=== PATIENT | female | born 1940 | race Caucasian/White ===

== ENCOUNTER 2019-05-10 13:21 | Inpatient (IN) | payer MEDICARE ==
[~2019-05-10] VITALS: Ht 165.1 cm; Wt 65.8 kg
[2019-05-10] MEDS ORDERED: FOLI100T (13:40)
--- NOTE | 2019-05-10 14:06 | NUR ---
PT IS IN ROOM #2B. DR PELAYO EVALUATED THE PT.
[2019-05-10 14:10] LABS: BASOPHILS % (AUTO) 0.8 % (0.0-2.0); EOSINOPHILS # (AUTO) 0.1 K/uL (0.0-0.7); HEMATOCRIT 40.4 % (31.2-41.9); HEMOGLOBIN 13.6 g/dL (10.9-14.3); LYMPHOCYTES # (AUTO) 1.5 K/uL (20.0-40.0); LYMPHOCYTES % (AUTO) 27.3 % (20.5-51.5); MEAN CORPUSCULAR HEMOGLOBIN 32.4 uug (24.7-32.8); MEAN CORPUSCULAR HGB CONC 34 g/dL (32.3-35.6); MEAN CORPUSCULAR VOLUME 95.9 fL (75.5-95.3); MONOCYTES # (AUTO) 0.4 K/uL (2.0-10.0); MONOCYTES % (AUTO) 6.8 % (0.0-11.0); NEUTROPHILS # (AUTO) 3.5 K/uL (1.8-8.9); NEUTROPHILS % (AUTO) 64.1 % (38.5-71.5); PLATELET COUNT (AUTO) 219 K/uL (179-408); RED BLOOD CELL COUNT(AUTO) 4.21 MIL/uL (3.63-4.92); WHITE BLOOD COUNT (AUTO) 5.4 K/uL (3.8-11.8)
[2019-05-10 14:17] LABS: POTASSIUM 3.9 mmol/L (3.5-5.1)
[2019-05-10 14:23] LABS: BILIRUBIN,DIRECT 0.2 mg/dL (0.0-0.2); BILIRUBIN,TOTAL 0.6 mg/dL (0.2-1.0); TOTAL PROTEIN, SERUM 7.2 g/dL (6.4-8.2)
--- NOTE | 2019-05-10 15:42 | NUR ---
REPORT WAS GIVEN TO LOSS PREVENTION DETECTIVE. PT WAS TRANSFERED TO ROOM #306.
--- NOTE | 2019-05-10 16:20 | NUR ---
received from ER awake alert and oriented, per olga, with diagnosis of syncope, routine admission care rendered, initial assessment done, safety measures initiated, call light within reach
[2019-05-10 16:54] VITALS: BP 134/68
[2019-05-10 17:04] LABS: *BILIRUBIN,URIN NEGATIVE (NEGATIVE); *BLOOD, URINE NEGATIVE (NEGATIVE); *COLOR,URINE YELLOW (YELLOW); *KETONES,URINE NEGATIVE (NEGATIVE); *UROBILINOGEN,URINE 0.2 E.U./dl (NORMAL); LEUKOCYTE ESTERASE ,URINE NEGATIVE (NEGATIVE); NITRITE, URINE NEGATIVE (NEGATIVE); PH,URINE 7.5 (5.0-8.0); UGLUCOSE NEGATIVE (NEGATIVE)
[2019-05-10 17:06] LABS: *CLARITY,URINE CLEAR (CLEAR)
--- NOTE | 2019-05-10 18:35 | NUR ---
visitors at bedside, having her dinner, denies of dizziness, all needs attended and met, call light within reach
--- NOTE | 2019-05-10 19:20 | NUR ---
Received patient lying in bed. AAOx4. In no acute distress. Denies any pain or SOB at this time. IV site on right AC intact and patent. NSR on tele at 77/min. Needs assessed and attended to. Safety measure initiated and call martinez within reach.
--- NOTE | 2019-05-10 19:25 | NUR ---
Nursing swallow screen done. Informed Dr. Ahn of result.
[2019-05-10] MEDS ORDERED: ONDANSETRON 4 MG/2 ML VIAL IV PRN (19:30)
[2019-05-10] MEDS ORDERED: TEMAZEPAM 15 MG CAPSULE PO PRN (19:30)
[2019-05-10] MEDS ORDERED: ACETAMINOPHEN 325 MG TABLET PO PRN (19:30)
[2019-05-10] MEDS ORDERED: TEMAZEPAM 7.5 MG CAPSULE PO PRN (19:45)
--- NOTE | 2019-05-10 20:00 | NUR ---
Dr. Ahn at patient bedside.
[2019-05-10 20:41] VITALS: BP 121/68
[2019-05-10] MEDS ORDERED: DOCUSATE SODIUM 250 MG CAPSULE PO SCH (21:00)
[2019-05-10] MEDS ORDERED: DOCUSATE SODIUM 100 MG CAPSULE PO SCH (21:00)
--- NOTE | 2019-05-10 21:06 | NUR ---
Patient seen by neurologist Dr Sandoval with order for echocardiogram to be done. Order acknowledged.
[2019-05-11] VITALS: BP 129/62
[2019-05-11 04:14] VITALS: BP 122/60
--- NOTE | 2019-05-11 06:07 | NUR ---
AAOx4. In no acute distress. Denies any pain or SOB at this time. IV site on right AC intact and patent. NSR on tele at 67/min. Needs assessed and attended to. Safety measure maintained and call martinez within reach
[2019-05-11 06:34] LABS: EOSINOPHILS # (AUTO) 0.1 K/uL (0.0-0.7); EOSINOPHILS % (AUTO) 2.6 % (0.0-7.0); HEMATOCRIT 38.8 % (31.2-41.9); HEMOGLOBIN 13.2 g/dL (10.9-14.3); LYMPHOCYTES # (AUTO) 1.6 K/uL (20.0-40.0); LYMPHOCYTES % (AUTO) 32.8 % (20.5-51.5); MEAN CORPUSCULAR HEMOGLOBIN 32.5 uug (24.7-32.8); MEAN CORPUSCULAR HGB CONC 34 g/dL (32.3-35.6); MEAN CORPUSCULAR VOLUME 95.8 fL (75.5-95.3); MONOCYTES # (AUTO) 0.5 K/uL (2.0-10.0); MONOCYTES % (AUTO) 9.8 % (0.0-11.0); NEUTROPHILS # (AUTO) 2.6 K/uL (1.8-8.9); NEUTROPHILS % (AUTO) 53.8 % (38.5-71.5); PLATELET COUNT (AUTO) 191 K/uL (179-408); RED BLOOD CELL COUNT(AUTO) 4.05 MIL/uL (3.63-4.92); WHITE BLOOD COUNT (AUTO) 4.8 K/uL (3.8-11.8)
[2019-05-11 06:49] LABS: BILIRUBIN,TOTAL 0.9 mg/dL (0.2-1.0); CREATININE 0.7 mg/dL (0.6-1.3); PHOSPHOROUS 2.9 mg/dL (2.5-4.9); POTASSIUM 3.7 mmol/L (3.5-5.1); TOTAL PROTEIN, SERUM 6.2 g/dL (6.4-8.2)
[2019-05-11] MEDS ORDERED: PANTOPRAZOLE SODIUM 40 MG TABLET.DR PO SCH (07:00)
--- NOTE | 2019-05-11 07:10 | NUR ---
Received patient , awake and alert in bed. Patient denies pain and discomfort. No acute distress noted. Bed in lowest position, side rails up x2, call light within reach. Will continue to monitor.
[2019-05-11 08:12] LABS: THYROID STIMULATING HORMONE 2.819 mIU/mL (0.358-3.740)
[2019-05-11] MEDS ORDERED: ASPIRIN EC 81 MG TABLET.DR PO SCH (09:00)
[2019-05-11 11:47] VITALS: BP 124/70
[2019-05-11 15:10] VITALS: BP 141/76
--- NOTE | 2019-05-11 16:10 | NUR ---
D/C'd patient. Reviewed D/C instructions with patient. Patient verbally understands discharge instructions. Escorted patient down without any complications.
[2019-05-11] MEDS ORDERED: ASPI-605 PO (18:21)
[2019-05-11] MEDS ORDERED: ATOR10TA PO (18:21)
== END 2019-05-11 16:10 | disposition home or self-care (01) | DRG 69 ==
LOC: ER 13:21 → TELE3 16:03
PROVIDERS: ADMIT Internal Medicine; ATTEND Internal Medicine
DX: G45.9 Transient cerebral ischemic attack, unspecified (principal); N17.0 Acute kidney failure with tubular necrosis; S00.83XA Contusion of other part of head, initial encounter; S40.812A Abrasion of left upper arm, initial encounter; W19.XXXA Unspecified fall, initial encounter; Y92.89 Other specified places as the place of occurrence of the external cause; R47.1 Dysarthria and anarthria; I67.2 Cerebral atherosclerosis; I70.0 Atherosclerosis of aorta; E78.5 Hyperlipidemia, unspecified
CPT/HCPCS: 36415; 70030-TC; 70450; 71045; 83605; 83735; 84100; 84443; 85025; 85730; 87040; 87086; 93005; 93307; 93880; A4663; G0378

== ENCOUNTER 2021-02-14 22:04 | Inpatient (IN) | payer MEDICARE ==
[~2021-02-14] VITALS: Ht 165.1 cm; Wt 59.2 kg
[~2021-02-14 22:04] MED LIST: ASPI-605 PO; ATOR10TA PO; FOLI100T
--- NOTE | 2021-02-14 22:10 | NUR ---
PT BIB [facility] 83 FROM [facility] FOR SYNCOPAL EPISODE. PER REPORT PT HAS HISTORY OF SYNCOPY. PER FAMILY REPORT, PT WAS SITTING DOWN ON A CHAIR WHEN EPSIODE OCCURED. NO TRAUMA. PT A/O X3, NO SOB OR LABORED BREATHING, AFEBRILE. DENIES CP /PRESSURE.
--- NOTE | 2021-02-14 22:11 | NUR ---
DR. HALEY AT BEDSIDE, MSE IN PROGRESS.
[2021-02-14] MEDS ORDERED: IV NORMAL SALINE 1000 ML BAG IV ONE (22:15)
[2021-02-14] MEDS ORDERED: CEFEPIME HCL 2 G in IV DEXTROSE 5% 100 ML IV ONE (22:45)
[2021-02-14] MEDS ORDERED: CEFEPIME HCL 1 G VIAL ONE (22:46)
--- NOTE | 2021-02-14 22:48 | NUR ---
PT TAKEN DOWN FOR CT.
[2021-02-14 22:49] LABS: HEMATOCRIT 35.1 % (31.2-41.9); MEAN CORPUSCULAR HEMOGLOBIN 32.3 uug (24.7-32.8); MEAN CORPUSCULAR VOLUME 92.5 fL (75.5-95.3); PLATELET COUNT (AUTO) 242 K/uL (179-408)
[2021-02-14] MEDS ORDERED: LORA10TA7 PO (22:58)
[2021-02-14] MEDS ORDERED: TRAZ-257 PO (22:58)
[2021-02-14] MEDS ORDERED: CHOL200059 PO (22:58)
[2021-02-14] MEDS ORDERED: ATOR80TA PO (22:58)
[2021-02-14] MEDS ORDERED: DONE5TAB7 PO (22:58)
[2021-02-14] MEDS ORDERED: CYAN100T44 PO (22:58)
[2021-02-14] MEDS ORDERED: ASCO500C18 PO (22:58)
[2021-02-14 23:21] LABS: PHOSPHOROUS 3.5 mg/dL (2.5-4.9)
[2021-02-14 23:23] LABS: BILIRUBIN,DIRECT 0.1 mg/dL (0.0-0.2); BILIRUBIN,TOTAL 0.4 mg/dL (0.2-1.0); CREATININE 0.8 mg/dL (0.6-1.3); POTASSIUM 4.1 mmol/L (3.5-5.1); THYROID STIMULATING HORMONE 5.006 mIU/mL (0.358-3.740); TOTAL PROTEIN, SERUM 6.3 g/dL (6.4-8.2)
[2021-02-14 23:46] LABS: *BILIRUBIN,URIN NEGATIVE (NEGATIVE); *BLOOD, URINE NEGATIVE (NEGATIVE); *CLARITY,URINE CLEAR (CLEAR); *COLOR,URINE YELLOW (YELLOW); *KETONES,URINE NEGATIVE (NEGATIVE); *UROBILINOGEN,URINE 0.2 E.U./dl (NORMAL); LEUKOCYTE ESTERASE ,URINE NEGATIVE (NEGATIVE); NITRITE, URINE NEGATIVE (NEGATIVE); UGLUCOSE NEGATIVE (NEGATIVE)
--- NOTE | 2021-02-15 00:12 | NUR ---
Paged Epic panel electron beam welder setter for admission, waiting for Dr Primo Sosa to call back.
--- NOTE | 2021-02-15 00:33 | NUR ---
GAVE REPORT TO DAYSI RIVAS.
[2021-02-15 00:44] LABS: BACTERIA,URINE NONE SEEN /HPF (NONE SEEN); RBC,URINE 0-3 /HPF (0-3); SQUAMOUS EPITHELIAL CELL,UR FEW /HPF (NONE SEEN); WBC,URINE 0-3 /HPF (0-3)
[2021-02-15] MEDS ORDERED: MAGNESIUM HYDROXIDE 30 ML LIQUID UDC PO PRN (00:45)
[2021-02-15] MEDS ORDERED: ACETAMINOPHEN 325 MG TABLET PO PRN (00:45)
[2021-02-15] MEDS ORDERED: ONDANSETRON 4 MG/2 ML VIAL IV PRN (00:45)
--- NOTE | 2021-02-15 01:25 | NUR ---
Admitted a 81 years old female with Dx of Syncope. Patient AAOx3, but forgetful. Denies any pain or SOB. NSR on tele at 84/min. IV site on left FA intact and patent. Noted with redness on sacrum area, scabs on left hand and redness and scaly skin on chest area. Routine admission care done. Plan of care initiated. Safety measure initiated and call martinez within reached.
[2021-02-15 01:30] VITALS: BP 116/54
--- NOTE | 2021-02-15 01:30 | NUR ---
Pt. admitted to tele , under care of Dr. Primo Morse Dx: syncope Belongs List completed
[2021-02-15] MEDS: ENOXAPARIN SODIUM 40 MG/0.4 ML DISP.SYRIN SQ SCH ×2 (02:00→20:14)
[2021-02-15] MEDS: IV NS 1000 ML 1,000 ML IV PRN ×2 (02:01→16:42)
[2021-02-15] MEDS: PANTOPRAZOLE SODIUM 40 MG TABLET.DR PO SCH (06:06)
--- NOTE | 2021-02-15 06:13 | NUR ---
Patient AAOx3, but forgetful. No syncopal episode noted. Denies any pain or SOB. NSR on tele at 94/min. IV site on left FA remains intact and patent. IVF infusing. Needs attended to and met. Safety measure maintained and call martinez within reached.
--- NOTE | 2021-02-15 08:00 | NUR ---
awake alert, oriented x 2, but very forgetful, denies of pain, no dizziness, tele SR 70's, safety measures maintained, needs attended and repositioned for breakfast.
[2021-02-15] MEDS: ASPIRIN EC 81 MG TABLET.DR PO SCH (08:33)
[2021-02-15 09:00] VITALS: BP 120/59
[2021-02-15 09:01] VITALS: BP_SYST 127; BP_SYST 145; BP_DIAS 69; BP_DIAS 71
--- NOTE | 2021-02-15 09:15 | NUR ---
seen by PT- see notes, orthostatic BP done and recorded
--- NOTE | 2021-02-15 11:15 | NUR ---
seen by Rudy ames NP and spoke to Sister Rosy and spoke to her at length- see notes
[2021-02-15 11:28] VITALS: BP 127/69
--- NOTE | 2021-02-15 14:03 | NUR ---
WOUND CARE CONSULT: PT PRESENTS WITH INTACT SKIN. RECOMMENDATIONS MADE FOR SKIN PROTECTION. DISCUSSED WITH NURSING STAFF. MD IN AGREEMENT WITH PLAN OF CARE. PT UP TO BATHROOM WITH ASSISTANCE AND WALKER.
[2021-02-15 16:04] VITALS: BP 131/58
[2021-02-15] MEDS: MEGESTROL ACETATE 20 MG TABLET PO SCH (17:13)
--- NOTE | 2021-02-15 17:37 | NUR ---
Sister Rosy here at bedside, assisted her with dinner
--- NOTE | 2021-02-15 18:57 | NUR ---
sitting up in chair, no distress noted, all needs attended and met, call light within reach
--- NOTE | 2021-02-15 20:00 | NUR ---
Received patient sitting in the wheelchair, Sister Rosy at bedside. Patient AAOx2-3, forgetful and with periods of confusion. Easily redirected. Denies any pain or SOB. NSR on tele at 79/min. IV site on left FA intact and patent. IVF infusing. Needs assessed and attended to. Safety measure initiated and call martinez within reached.
[2021-02-15 20:36] VITALS: BP 100/50
[2021-02-15] MEDS ORDERED: ATORVASTATIN 40 MG TABLET PO SCH (21:00)
[2021-02-16 00:02] VITALS: BP 118/55
[2021-02-16 04:35] VITALS: BP 125/55
[2021-02-16] MEDS: PANTOPRAZOLE SODIUM 40 MG TABLET.DR PO SCH (06:01)
[2021-02-16] MEDS: IV NS 1000 ML 1,000 ML IV PRN (06:18)
[2021-02-16 06:20] LABS: HEMATOCRIT 32.3 % (31.2-41.9); MEAN CORPUSCULAR HEMOGLOBIN 32.8 uug (24.7-32.8); MEAN CORPUSCULAR VOLUME 94.5 fL (75.5-95.3); PLATELET COUNT (AUTO) 211 K/uL (179-408)
--- NOTE | 2021-02-16 06:22 | NUR ---
Patient AAOx2-3, forgetful and with periods of confusion.Appears comfortable. Denies any pain or SOB. NSR on tele at 83/min. IV site on left FA intact and patent. IVF infusing. Needs attended to and met. Due meds given and taken. Safety measure maintained and call martinez within reached.
[2021-02-16 06:43] LABS: CARBON DIOXIDE 26 mmol/L (21-32); CHLORIDE 106 mmol/L (98-107); CHOLESTEROL 138 mg/dL (<200); CREATININE 0.6 mg/dL (0.6-1.3); GLUCOSE 97 mg/dL (74-106); HDL CHOLESTEROL 71 mg/dL (40-60); MAGNESIUM 1.9 mg/dL (1.8-2.4); PHOSPHOROUS 2.5 mg/dL (2.5-4.9); POTASSIUM 3.5 mmol/L (3.5-5.1); TRIGLYCERIDES 49 MG/DL (30-150); UREA NITROGEN, BLOOD 13 mg/dL (7-18)
[2021-02-16 06:49] LABS: THYROID STIMULATING HORMONE 2.398 mIU/mL (0.358-3.740)
--- NOTE | 2021-02-16 08:09 | NUR ---
Awake, alert, oriented x 2, forgetful, able to verbalized needs appropriately. Assisted to the bathroom, continent, then back to bed. Bed alarm on
[2021-02-16] MEDS: ASPIRIN EC 81 MG TABLET.DR PO SCH (09:03)
[2021-02-16] MEDS: MEGESTROL ACETATE 20 MG TABLET PO SCH ×2 (09:03→17:52)
[2021-02-16 10:30] VITALS: BP_SYST 120; BP_SYST 122; BP_SYST 124; BP_DIAS 52; BP_DIAS 57; BP_DIAS 64
--- NOTE | 2021-02-16 10:30 | NUR ---
Orthostatic BP taken, results relayed to Tona GRAY
[2021-02-16 12:00] VITALS: BP 120/52
[2021-02-16 16:00] VITALS: BP 112/55
[2021-02-16 19:53] VITALS: BP 124/55
--- NOTE | 2021-02-16 20:30 | NUR ---
Pt is discharged in improved condition; IVHL removed;; discharge instructions given to family; pt assisted to wheelchair and taken to lobby where sister picked her up to go home via car.
[2021-02-17] MEDS ORDERED: MEGE20TA4 PO (11:57)
== END 2021-02-16 20:33 | disposition home or self-care (01) | DRG 641 ==
LOC: ER 22:06 → TELE3 02-15 01:01
PROVIDERS: ADMIT Registered Nurse; ATTEND Registered Nurse
DX: E86.0 Dehydration (principal); R55 Syncope and collapse; G30.9 Alzheimer's disease, unspecified; F02.80 Dementia in other diseases classified elsewhere, unspecified severity, without behavioral disturbance, psychotic disturbance, mood disturbance, and anxiety; E78.5 Hyperlipidemia, unspecified; E86.1 Hypovolemia; F41.9 Anxiety disorder, unspecified; H26.9 Unspecified cataract; I10 Essential (primary) hypertension; Z79.82 Long term (current) use of aspirin; Z86.73 Personal history of transient ischemic attack (TIA), and cerebral infarction without residual deficits; Z79.899 Other long term (current) drug therapy; M85.80 Other specified disorders of bone density and structure, unspecified site; I95.9 Hypotension, unspecified; G31.83 Neurocognitive disorder with Lewy bodies; Z20.822 Contact with and (suspected) exposure to COVID-19
CPT/HCPCS: 36415; 70030-TC; 70450; 71045; 83605; 83690; 83735; 84100; 84443; 85025; 85730; 87040; 87086; 93005; 93307; 93880; 97161; A4663; C1758; G0378; J0692; J1650; J7030